=== PATIENT | female | born 1945 | race Caucasian/White ===

== ENCOUNTER → 2017-02-26 | Outpatient (CLI) | payer MEDICARE, OTHER ==
[~2017-02-26] VITALS: Ht 157.5 cm; Wt 52.7 kg
[~2017-02-26] MED LIST: ALEVE 220MG220 MG PO; ASPIRIN E.C. 8181 MG PO; FLONASE NASAL S16 GM NS; MOTRIN 200200 MG/TAB; PREMARIN VAG42.5 GM VG; SUDAFED 12HR120 MG PO
[2017-02-26 10:00] VITALS: BP 115/73; PULSE 68
[2017-02-26 10:04] VITALS: BP 115/73; PULSE 68
[2017-02-26 11:10] VITALS: BP 134/87; PULSE 62
== END ==
LOC: COL.RAD 08:53
DX: E04.2 Nontoxic multinodular goiter (principal)

== ENCOUNTER → 2017-05-18 | Outpatient (CLI) | payer MEDICARE, OTHER | LOC: MC.RAD 10:00 | DX: Z12.31 Encounter for screening mammogram for malignant neoplasm of breast (principal) ==

== ENCOUNTER → 2017-05-26 | Outpatient (CLI) | payer MEDICARE, OTHER | LOC: ZCOL.LAB 14:46 | DX: M79.606 Pain in leg, unspecified (principal) ==

== ENCOUNTER → 2017-09-15 | Outpatient (CLI) | payer MEDICARE, OTHER | LOC: COL.CARD 08:59 | DX: G93.89 Other specified disorders of brain (principal) | CPT/HCPCS: A9585 ==

== ENCOUNTER → 2017-12-07 | Outpatient (CLI) | payer MEDICARE, OTHER | LOC: COL.RAD 14:30 | DX: G31.9 Degenerative disease of nervous system, unspecified (principal); G93.89 Other specified disorders of brain ==

== ENCOUNTER → 2018-05-20 | Outpatient (CLI) | payer MEDICARE, OTHER ==
[~2018-05-20] MED LIST changes: +ARICEPT 5MG PO; +CALCIUM CITRATE PO; +CHOLESTOFF PLUS PO; +COENZYME Q-10100 M1 PO; +CRANBERRY FRUIT PO; +FLONASEALLERGY NS; +LEXAPRO 10MG10 MG PO; +LUTEIN20 M1 PO; +MAGNESIUM500 MG PO; +MASON NATURAL2000 IU PO; +MULTIVITAMIN SEN PO; +NIACIN FLUSH F400 MG PO; +OSTEO BIFLEX TRIPLE PO; +PROBIOTIC ACID1 EAC3 PO; +SALMON OIL PO; +STOOL SOFTENER100 M2 PO; +VITAMIN B-1000 MCG/T PO; +VITAMIN B-6100 MG PO; +VITAMIN C500 MG PO; +VITAMIN E PO; +VITAMINE200 PO; +[UNRECOGNIZED DRUG - CODE] PO; +[UNRECOGNIZED DRUG - OTHER] PO; +[UNRECOGNIZED DRUG - OTHER] PO; +[UNRECOGNIZED DRUG - REMARK] PO
== END ==
LOC: MC.RAD 13:00
DX: Z12.31 Encounter for screening mammogram for malignant neoplasm of breast (principal)

== ENCOUNTER → 2019-05-26 | Outpatient (CLI) | payer MEDICARE, OTHER | LOC: MC.RAD 14:15 | DX: Z12.31 Encounter for screening mammogram for malignant neoplasm of breast (principal) ==

== ENCOUNTER 2021-08-25 10:22 | Emergency (ER) | payer MEDICARE, OTHER ==
[~2021-08-25] VITALS: Ht 157.5 cm; Wt 47.7 kg
[2021-08-25 10:27] VITALS: BP 115/63; TEMP 98.4
[2021-08-25 11:26] VITALS: PULSE 67
== END 2021-08-25 11:26 | disposition home or self-care (01) ==
LOC: COL.ER 10:22
DX: I80.02 Phlebitis and thrombophlebitis of superficial vessels of left lower extremity (principal)

== ENCOUNTER → 2023-07-28 | Outpatient (CLI) | payer MEDICARE, OTHER | LOC: MC.RAD 13:59 | DX: Z12.31 Encounter for screening mammogram for malignant neoplasm of breast (principal) ==